=== PATIENT | female | born 1960 | race Caucasian/White ===

== ENCOUNTER 2021-04-30 12:06 | Emergency (ER) | payer BC ==
[~2021-04-30] VITALS: Ht 157.5 cm; Wt 90.7 kg
[2021-04-30 12:59] LABS: HEMOGLOBIN 13.6 gm/dl (12.3-15.3); RED BLOOD COUNT 4.75 M/UL (4.00-5.10); WHITE BLOOD COUNT 5.3 K/UL (4.5-11.0)
[2021-04-30 13:19] LABS: BUN/CREATININE RATIO 13 (0-10)
== END 2021-04-30 17:03 | disposition home or self-care (01) ==
LOC: ER1 12:06
PROVIDERS: Emergency Medicine
DX: U07.1 COVID-19 (principal); R55 Syncope and collapse; J45.909 Unspecified asthma, uncomplicated; Z23 Encounter for immunization
CPT/HCPCS: 71045; 80053; 81001; 82550; 82553; 82962; 83874; 84484; 85025; 85379; 93005; 96374; 99284; J2405; M0243